=== PATIENT | female | born 1935 | race Caucasian/White ===

== ENCOUNTER 2018-01-07 11:40 | Inpatient (IN) ==
[2018-01-07] MEDS ORDERED: MORPHINE SULFATE 2 MG/1 ML IVP STA (15:50)
--- NOTE | 2018-01-07 15:58 | PDOC ---
HPI - History of Present Illness Date of Service: 01/07/18 Time of Service: 15:30 Chief Complaint: Left hip pain History of Present Illness: This is an 82 years old female with medical history significant for history of hypertension, dementia who apparently fell at home after she tripped and landed on her left hip. She was complaining from severe left hip pain was unable to stand or put weight on it she was able to contact the EMS who brought her to the ER in [place]. Evaluation revealed an acute displaced and rotated left subcapital hip fracture the ER physician there spoke with Dr. Camilo who accepted the patient and patient was transferred here. Patient when I saw was complaining from pain in the left hip area. She is denying other symptoms like chest pain or shortness of breath or pain elsewhere. No nausea. Past Medical History Medical History: 1. Hypertension. 2. Dementia Surgical History: 1. Hysterectomy. 2. Appendectomy. 3. Cholecystectomy. 4. Salpingo-oophorectomy Family History: Reviewed an Not Pertinent Past Social History: Used to smoke and drink but he said not anymore, no drugs. Lives by herself in [place]. She gets Meals on Wheels. She lives in an assisted living based on her description. Medication / Allergies Home Medications: Home Medications 3 Medication Instructions Recorded Confirmed Type Albuterol/Ipratropium Inhaler 1 - 2 puff INH DAILY PRN puff 07/26/14 07/10/17 History [Combivent Respimat Inhaler] Aspirin 1 tab PO DAILY tab 07/26/14 07/10/17 History Donepezil HCl [Aricept] 1 tab PO DAILY tab 07/26/14 07/10/17 History Hydrochlorothiazide 1 tab PO DAILY tab 07/26/14 07/10/17 History Oxybutynin Chloride 1 - 2 tab PO DAILY PRN tab 07/26/14 07/10/17 History Vitamin E (Dl,Tocopheryl Acet) 1,000 cap PO DAILY cap 07/26/14 07/10/17 History [Vitamin E] [place]-3/Dha/Epa/Fish Oil [Fish Oil] 2 tab PO BID cap 10/31/15 07/10/17 History Lisinopril 1 tab PO DAILY #30 tab 11/10/15 07/10/17 History Hydrocodone/Acetaminophen 1 tab PO Q4-6H #60 tab 06/07/16 07/10/17 History [Hydrocodon-Acetaminophen 5-325] Allergies/Adverse Reactions: Allergies 3 Allergy/AdvReac Type Severity Reaction Status Date / Time No Known Allergies Allergy Unverified 11/10/15 13:40 Review of Systems - Review of Systems All Systems: Reviewed & No Additional Complaints Except as Stated Exam - General General Appearance: Cooperative, Obese - Head Head Exam: Normal Inspection - Eye Eye Exam: POSITIVE: Normal Appearance - ENT ENT Exam: POSITIVE: Normal Exam - Neck Neck Exam: Normal Inspection - Respiratory Respiratory Exam: POSITIVE: Clear to Auscultation - Bilaterally - Cardiovascular Cardiovascular Exam: POSITIVE: RRR - GI/Abdominal GI/Abdominal Exam: POSITIVE: Normal Bowel Sounds, Non Tender, Non Distended, Soft, No Organomegaly - Rectal Rectal Exam: POSITIVE: Deferred - External Exam: POSITIVE: Deferred - Extremities Additional Extremities Exam Details: No edema. Shortened left leg. - Neurological Neurological Exam: POSITIVE: Alert, CN II-XII Intact, No Facial Droop, Speech Intact / Clear Additional Neurological Exam Details: She knew the day and the month. She struggled with part of the history. - Psychiatric Psychiatric Exam: POSITIVE: Flat Affect - Integumentary Integumentary Exam: POSITIVE: Normal Color Results - Labs Additional Lab Results: White count was 7.6, hemoglobin 12.7 platelet 334, glucose 109, BUN 22, creatinine 0.9, sodium 138 potassium 3.1, chloride 102, CO2 26, calcium 8.9, protein 7.1, albumin 3.6, bilirubin 0.4, AST 18, ALT 22, alkaline phosphatase 102 - EKG Data -: EKG Interpreted by Me Rate: Normal EKG Shows Normal: Sinus Rhythm - EKG Data EKG Interpretation: Other (EKG showed normal sinus rhythm) - Imaging Status: Image Reviewed by Me (The chest x-ray to me looked clear. The CT of the pelvis showed an acute displaced and rotated left subcapital hip fracture) Assessment and Plan - Patient Problems (1) Hip fracture, left Current Visit: Yes Status: Acute Comment: Patient will be put her nothing by mouth after midnight tonight. Plan for surgery 1 p.m. tomorrow based on my discussion with Dr. Camilo. Her EKG does not show evidence of ischemic changes. No history of ischemic heart disease, diabetes, renal failure, CVA, no history of heart failure. Based on the revised cardiac risk index risk factor then her estimated risk for cardiac , non-fatal NC and non-fatal cardiac arrest is probably about 0.4%. I think with the nature of the injury I think she can proceed with surgery with no need for further evaluation. I Did write for pain medications, will send a UA and culture if indicated. Code(s): S72.002A - Fracture of unspecified part of neck of left femur, initial encounter for closed fracture (2) Hypertension Current Visit: Yes Status: Acute Comment: She is on lisinopril and hydrochlorothiazide she said she took her medications today. I think will watch her blood pressure tonight and see whether we need to adjust her medications. We will likely hold her lisinopril and diuretics tomorrow though. Code(s): I10 - Essential (primary) hypertension (3) Hypokalemia Current Visit: Yes Status: Acute Comment: Replace her potassium. Repeat her labs in the morning Code(s): E87.6 - Hypokalemia (4) Dementia Current Visit: Yes Status: Acute Comment: Continue previous medications Code(s): F03.90 - Unspecified dementia without behavioral disturbance
[2018-01-07] MEDS ORDERED: Influenza 18-19 Vaccine (6mo+) 60 MCG/0.5 ML SYRINGE IM ONE (16:25)
[2018-01-07] MEDS ORDERED: DOCUSATE 100 MG CAPSULE PO PRN (16:39)
[2018-01-07] MEDS ORDERED: ONDANSETRON 4 MG/2 ML VIAL IVP PRN (16:39)
[2018-01-07] MEDS ORDERED: LIDOCAINE W/ SODIUM BICARB 0.5 ML SYR SUBD PRN (16:39)
[2018-01-07] MEDS ORDERED: ACETAMINOPHEN 325 MG TABLET PO PRN (16:39)
[2018-01-07] MEDS ORDERED: CALCIUM CARBONATE 500 MG (TUMS) CHEWABLE TABLET PO PRN (16:39)
[2018-01-07] MEDS ORDERED: HYDROcodone-APAP 5 MG -325 MG TABLET PO SCH (16:45)
[2018-01-07] MEDS: MORPHINE SULFATE 2 MG/1 ML IVP PRN (17:14)
[2018-01-07] MEDS: POTASSIUM CHLORIDE 20 MEQ TAB PO SCH ×2 (17:14→21:36)
--- NOTE | 2018-01-07 19:46 | CONSULT ---
Consult Note - Consult Consult Date: 01/07/18 Reason for Consult: PreOp Consulation : Ortho Requesting Physician: Dr. Bardales Primary Care Provider: MELITON ROONEY - History of Present Illness History of Present Illness: 82-year-old female who lives in senior housing was at home where she lives semi- independent with some assist who sustained a fall landing on her left side immediate pain and discomfort and deformity. Patient was brought to the emergency room and we'll and wishes found to have a hip fracture and requested transfer. Patient did not have any dizziness lightheadedness shortness of breath or chest pain. Patient's transfer delayed because no ambulance available. Patient denied hip pain prior and discussing with family there was no prior hip pain on the left Past Medical History Medical History: 1. Hypertension. 2. Dementia Surgical History: 1. Hysterectomy. 2. Appendectomy. 3. Cholecystectomy. 4. Salpingo-oophorectomy Family History: Reviewed an Not Pertinent Past Social History: Used to smoke and drink but he said not anymore, no drugs. Lives by herself in [place]. She gets Meals on Wheels. She lives in an assisted living based on her description. Tobacco Use: Former Smoker In the Past 12 Months, Have Used or Abuse Any of the Following Substance: None Medication / Allergies Home Medications: Home Medications 3 Medication Instructions Recorded Confirmed Type Albuterol/Ipratropium Inhaler 1 - 2 puff INH DAILY PRN puff 07/26/14 07/10/17 History [Combivent Respimat Inhaler] Aspirin 1 tab PO DAILY tab 07/26/14 07/10/17 History Donepezil HCl [Aricept] 1 tab PO DAILY tab 07/26/14 07/10/17 History Hydrochlorothiazide 1 tab PO DAILY tab 07/26/14 07/10/17 History Oxybutynin Chloride 1 - 2 tab PO DAILY PRN tab 07/26/14 07/10/17 History Vitamin E (Dl,Tocopheryl Acet) 1,000 cap PO DAILY cap 07/26/14 07/10/17 History [Vitamin E] [place]-3/Dha/Epa/Fish Oil [Fish Oil] 2 tab PO BID cap 10/31/15 07/10/17 History Lisinopril 1 tab PO DAILY #30 tab 11/10/15 07/10/17 History Hydrocodone/Acetaminophen 1 tab PO Q4-6H #60 tab 06/07/16 07/10/17 History [Hydrocodon-Acetaminophen 5-325] Allergies/Adverse Reactions: Allergies 3 Allergy/AdvReac Type Severity Reaction Status Date / Time No Known Allergies Allergy Unverified 11/10/15 13:40 Exam - - Exam: Examination shows that the patient is a well-developed well-nourished female in no apparent distress. She is alert and oriented generally though she does have some degree of confusion has trouble finding words she does know the date and day and she does realize that she broke her hip and where she currently is. She also remembered me haven't seen her previously for her knee. Examination shows that head and neck is generally benign upper extremities good active range of motion right hip with a good motion as well as knee ankle and toe motion. As far as the left lower extremity patient with shortening and external rotation no open wounds no significant bruising or ecchymosis but shortening of the leg. She has good sensory exam is generally motor and sensory exam is nonfocal. Radiographs were obtained in [place] which show a subcapital hip fracture with shortening and anterior angulation of the fracture site with almost complete displacement. Patient with reasonable joint space preservation no evidence of arthritic changes. A CT scan was obtained and [place] which showed similar findings I don't see any evidence of intertrochanteric hip fracture extension. Owing spaces reasonably well-preserved no evidence of arthritic type changes at the hip joint on the left but patient does have some evidence of hip arthritis on the right - Vitals Vital Signs: Vital Signs Temperature 98.9 F Temperature Source Oral Pulse Rate [Pulse Oximeter] 83 Respiratory Rate 16 Blood Pressure [Left Arm] 159/60 Pulse Ox 90 Oxygen Flow Rate 3 Oxygen Delivery Method Nasal Cannula Height 5 ft 3 in Weight 73.936 kg Assessment and Plan - Assessment / Plan Additional Assessment/Plan Details: Impression: Left subcapital hip fracture Plan: We discussed the patient's current condition and clinical findings as it pertains to the current situation. Surgical versus nonsurgical options risks and benefits were discussed and reviewed. Options moving forward include but are not limited to continued choice to live with their current condition; evaluate their current condition further with imaging studies and/or diagnostic testing, etc.; treat problem/problems with surgical versus nonsurgical methods. The patient demonstrates a clear understanding of our discussion. All questions were answered. Surgical versus nonsurgical options risks and benefits were discussed and reviewed. The risks include but are not limited to bleeding, infection, neurovascular damage, wound problems, deep vein thromboses, pulmonary embolism, fracture, dislocation, nonunion/malunion, need for further surgery, need for blood transfusion, and loss of life and limb. Certainly any surgical procedure may not improve symptoms and potentially could makes symptoms worse. There are no guarantees implied with the discussion of surgical treatment. All questions are answered and the patient wishes to proceed with surgical treatment. Discussed with family she had no prior hip pain we will proceed with hemiarthroplasty. All questions were answered.
[2018-01-07] MEDS: HYDROcodone-APAP 5 MG -325 MG TABLET PO PRN (21:36)
[2018-01-08] MEDS: HYDROcodone-APAP 5 MG -325 MG TABLET PO PRN ×2 (01:10→09:51)
[2018-01-08 05:37] LABS: BASOPHILS # (AUTO) 0.03 10*3/UL; BASOPHILS % (AUTO) 0.3 % (0-1); EOSINOPHILS # (AUTO) 0.14 10*3/UL; EOSINOPHILS % (AUTO) 1.2 % (0-8); Hematocrit [HCT] 40.5 % (37.0-47.0); Hemoglobin [HGB] 13.5 g/dL (12.0-16.0); LYMPHOCYTES # (AUTO) 0.81 10*3/uL; MEAN CORPUSCULAR HEMOGLOBIN 29.4 PG (27-31); MEAN CORPUSCULAR HGB CONC 33.3 g/dL (33-37); MEAN CORPUSCULAR VOLUME 88.2 FL (81-99); MEAN PLATELET VOLUME 10.9 FL (7.4-12.2); MONOCYTES # (AUTO) 0.87 10*3/UL (0.3-0.8); MONOCYTES % (AUTO) 7.3 % (5-15); NEUTROPHILS # (AUTO) 9.98 10*3/UL; NEUTROPHILS % (AUTO) 84.2 % (50-80); RED BLOOD COUNT 4.59 10^6/uL (4.20-5.40)
[2018-01-08 06:02] LABS: BLOOD UREA NITROGEN 15 mg/dL (7-22)
[2018-01-08 06:45] LABS: PLATELET MORPHOLOGY COMMENT NORMAL MORPHOLOGY (NORM); RBC MORPHOLOGY COMMENT NORMAL MORPHOLOGY (NORM); WBC MORPHOLOGY COMMENT NORMAL MORPHOLOGY (NORM)
[2018-01-08] MEDS ORDERED: Nasal Sanitizer POPSWAB ampule 3 AMP (Nozin) PREOP DOSE ENOS SCH (07:30)
[2018-01-08] MEDS ORDERED: Acetaminophen 1000mg Inj 1,000 MG/100 ML VIAL IV PRN (07:51)
--- NOTE | 2018-01-08 07:51 | PDOC(PROG) ---
Date of Service: 01/08/18 Time of Service: 08:00 Interval History: Subjective Patient complaining from pain in her back today. She still have pain in her hip. Denying other symptoms. Objective : Data - Labs CBC and BMP: 01/08/18 05:25 01/08/18 05:25 Objective : Exam - General General Appearance: No Acute Distress, Cooperative, Obese - Head Head Exam: Normal Inspection - Eye Eye Exam: Normal Appearance - ENT ENT Exam: Normal Exam - Neck Neck Exam: Normal Inspection - Respiratory Respiratory Exam: Clear to Auscultation - Bilaterally - Cardiovascular Cardiovascular Exam: RRR - GI/Abdominal GI/Abdominal Exam: Normal Bowel Sounds, Non Tender, Non Distended, Soft, No Organomegaly - Rectal Rectal Exam: Deferred - External Exam: Deferred - Extremities Additional Extremities Exam Details: No edema. Her left leg is in Jo's traction - Neurological Neurological Exam: Alert, CN II-XII Intact, No Facial Droop, Speech Intact / Clear - Psychiatric Psychiatric Exam: Flat Affect Assessment and Plan - Patient Problems (1) Hip fracture, left Current Visit: Yes Status: Acute Comment: She will have surgery today. I did order a UA yesterday however it was not sent, they will send it today. Code(s): S72.002A - Fracture of unspecified part of neck of left femur, initial encounter for closed fracture (2) Hypertension Current Visit: Yes Status: Acute Comment: I think will put her on Norvasc for blood pressure. Code(s): I10 - Essential (primary) hypertension (3) Hypokalemia Current Visit: Yes Status: Acute Comment: This is replaced Code(s): E87.6 - Hypokalemia (4) Dementia Current Visit: Yes Status: Acute Comment: Same med Code(s): F03.90 - Unspecified dementia without behavioral disturbance
--- NOTE | 2018-01-08 08:04 | ORTHO.PROG ---
Last Taken Vital Signs: Vital Signs - Last Taken Temperature 97.7 F 01/08/18 07:06 Pulse Rate 74 01/08/18 07:06 Respiratory Rate 20 01/08/18 07:06 Blood Pressure 173/73 01/08/18 07:06 Pulse Ox 93 01/08/18 07:06 Subjective: And also some lower left back pain. Left hip pain. Objective: Examination shows that the patient has good motion of the toes she states she has normal sensory exam there is no areas of skin breakdown around the hip region. Patient with tenderness to palpation over the hip region. Patient is in Jo's traction. Patient with no flank type pain. In no pain with palpation or percussion in the lower back. Laboratory Results 01/08/18 01/08/18 01/08/18 Range/Units 05:25 05:25 05:25 WBC 11.85 H (4.8-10.8) 10^3/uL RBC 4.59 (4.20-5.40) 10^6/uL Hgb 13.5 (12.0-16.0) g/dL Hct 40.5 (37.0-47.0) % MCV 88.2 (81-99) FL MCH 29.4 (27-31) PG MCHC 33.3 (33-37) g/dL RDW Std Deviation 47.3 (39-50) fL RDW Coeff of Xuan 14.9 H (11.5-14.5) % Plt Count 338 (140-350) 10*3/uL MPV 10.9 (7.4-12.2) FL Immature Gran % (Auto) 0.2 (0-5) % Neut % (Auto) 84.2 H (50-80) % Lymph % (Auto) 6.8 L (10-50) % [place] % (Auto) 7.3 (5-15) % Eos % (Auto) 1.2 (0-8) % Baso % (Auto) 0.3 (0-1) % Immature Gran # (Auto) 0.02 10*3/UL Neut # (Auto) 9.98 10*3/UL Lymph # (Auto) 0.81 10*3/uL [place] # (Auto) 0.87 H (0.3-0.8) 10*3/UL Eos # (Auto) 0.14 10*3/UL Baso # (Auto) 0.03 10*3/UL WBC Morphology Comment Normal morphology (NORM) Plt Morphology Comment Normal morphology (NORM) RBC Morph Comment Normal morphology (NORM) Sodium 138 (135-145) meq/L Potassium 3.6 L (3.8-5.2) meq/L Chloride 108 (98-112) meq/L Carbon Dioxide 22 L (23-33) meq/L Anion Gap 8 (5-20) BUN 15 (7-22) mg/dL Creatinine 0.5 (0.50-1.20) mg/dL BUN/Creatinine Ratio 30.00 H (6-20) Glucose 115 H (78-110) mg/dL Calculated Osmolality 287.0 (267-292) mOsm/kg Calcium 8.7 (8.7-10.7) mg/dL Blood Type AB NEGATIVE Antibody Screen Negative Vital Signs (24 hrs) Temp Pulse Pulse Resp BP Pulse Ox 01/08/18 07:06 97.7 F 74 20 173/73 93 01/08/18 04:58 97.2 F 100 20 157/84 94 01/08/18 04:19 92 01/07/18 20:54 97.7 F 105 H 20 169/92 92 01/07/18 19:00 80 01/07/18 17:21 90 01/07/18 15:46 98.9 F 83 16 159/60 92 Assessment: Left femoral neck subcapital fracture Plan: Tentative plan is to proceed with hemiarthroplasty on left we'll see about doing this later today once or time is available equipment is available. We will discuss the case further there are any questions with her daughter her sister. We did discuss the case with her sister Jose Raul yesterday down in [facility] with surgery. We discussed the patient's current condition and clinical findings as it pertains to the current situation. Surgical versus nonsurgical options risks and benefits were discussed and reviewed. Options moving forward include but are not limited to continued choice to live with their current condition; evaluate their current condition further with imaging studies and/or diagnostic testing, etc.; treat problem/problems with surgical versus nonsurgical methods. The patient demonstrates a clear understanding of our discussion. All questions were answered. Surgical versus nonsurgical options risks and benefits were discussed and reviewed. The risks include but are not limited to bleeding, infection, neurovascular damage, wound problems, deep vein thromboses, pulmonary embolism, fracture, dislocation, nonunion/malunion, need for further surgery, need for blood transfusion, and loss of life and limb. Certainly any surgical procedure may not improve symptoms and potentially could makes symptoms worse. There are no guarantees implied with the discussion of surgical treatment. All questions are answered and the patient wishes to proceed with surgical treatment.
[2018-01-08] MEDS: POTASSIUM CHLORIDE 20 MEQ TAB PO SCH (08:12)
[2018-01-08] MEDS: MORPHINE SULFATE 2 MG/1 ML IVP PRN (08:12)
--- NOTE | 2018-01-08 08:54 | DI ---
XR HIP COMPLETE MIN 2VW U/L,01/07/2018 5:02 PM: Clinical History: Left subcapital hip fracture. Previous Exam: None at this facility. Findings: AP and crosstable lateral views of the left hip are obtained, and demonstrate a displaced subcapital femoral neck fracture. Impression: Displaced left subcapital hip fracture.
[2018-01-08] MEDS ORDERED: DONEPEZIL HCL PO SCH (09:00)
[2018-01-08] MEDS ORDERED: AmLODIPine Tab 5 MG TABLET PO SCH (09:00)
[2018-01-08 09:52] LABS: BILIRUBIN,URINE NEGATIVE (NEG); CLARITY,URINE CLEAR (CLEAR); COLOR,URINE YELLOW (Y); GLUCOSE, URINE (UA) NEGATIVE (NEG); OCCULT BLOOD,URINE MODERATE (NEG); PROTEIN,URINE 30 mg/dl (NEG)
[2018-01-08 10:01] LABS: BACTERIA,URINE FEW; SQUAMOUS EPITHELIAL CELL,UR RARE; URINE SAMPLE TYPE CLEAN CATCH URINE; WBC,URINE 50-60
[2018-01-08] MEDS ORDERED: cefTRIAXone Inj 1 GM in Sodium Chloride 0.9% 100 ML IV SCH (11:00)
[2018-01-08] MEDS ORDERED: Lactated Ringers 1,000 ML PRIMARY IV ONE ×2 (12:30→15:28)
[2018-01-08] MEDS ORDERED: MIDAZOLAM 5 MG/1 ML ONE ×2 (12:34→13:39)
[2018-01-08] MEDS ORDERED: KETAMINE 100 MG/1 ML - 5 ML ONE (12:34)
[2018-01-08] MEDS ORDERED: fentaNYL Inj 100 MCG/2 ML VIAL ONE (12:34)
[2018-01-08] MEDS ORDERED: PROPOFOL 10 MG/1 ML (200 MG/20 ML) VIAL IV ONE ×2 (12:34→14:23)
[2018-01-08] MEDS ORDERED: EPINEPHrine Inj (1:1,000) 1 mg/ml amp ONE (12:35)
[2018-01-08] MEDS ORDERED: BUPIVACAINE SPINAL 7.5 MG/1 ML - 2 ML IV ONE (12:35)
[2018-01-08] MEDS ORDERED: Sodium Chloride 0.9% 500 ML ONE (12:37)
[2018-01-08] MEDS ORDERED: LIDOCAINE W/ SODIUM BICARB 0.5 ML SYR ONE ×2 (12:38→13:14)
[2018-01-08] MEDS ORDERED: BUPivacaine Inj 0.5% PF (5mg/ml) 30ml vial ONE (12:41)
[2018-01-08] MEDS ORDERED: BACITRACIN 50,000 UNIT VIAL IRRIG ONE (12:42)
[2018-01-08] MEDS ORDERED: Lactated Ringers 1,000 ML PRIMARY IV SCH (12:45)
[2018-01-08] MEDS ORDERED: Gentamicin Inj 40 MG/ML VIAL ONE (12:54)
[2018-01-08] MEDS ORDERED: Sodium Chloride 0.9% 2,000 ML PRIMARY IV ONE (13:00)
[2018-01-08] MEDS ORDERED: HEPARIN 10,000 UNIT/1 ML ONE (13:00)
[2018-01-08] MEDS ORDERED: ceFAZolin Inj 2gm (Premix) 2 GM/50 ML BAG IV ONE (13:29)
[2018-01-08] MEDS ORDERED: TRANEXAMIC ACID 1,000 MG / 10 ML VIAL ONE ×2 (13:39→15:19)
[2018-01-08] MEDS ORDERED: FAMOTIDINE 20 MG/2 ML VIAL IVP ONE (14:38)
[2018-01-08] MEDS ORDERED: SUCCINYLCHOLINE CHLORIDE 20 MG/1 ML - 10 ML ONE (14:39)
[2018-01-08] MEDS ORDERED: Ketorolac Inj 30 MG, Morphine Inj (Ortho Cocktail) 5 MG, BUPivacaine Inj 0.25% PF 150 MG SPLASH ONE ×6 (14:44→14:50)
[2018-01-08] MEDS ORDERED: Sodium Chloride 0.9% vial 40 ML ONE (14:47)
[2018-01-08] MEDS ORDERED: BUPivacaine Liposome/PF (Exparel) Inj 20ml vial INFIL ONE (14:47)
[2018-01-08] MEDS ORDERED: ePHEDrine Inj 50 MG/ML AMP ONE (16:12)
--- NOTE | 2018-01-08 16:23 | ORTHO.OP ---
- - -: See Dictated Operative Report Procedure Codes - Hip Procedures Primary Hip Procedure: Other CPT Code(s) (cpt 66368, Azra SWENSON assisted)
[2018-01-08] MEDS ORDERED: Sodium Chloride 0.9% 250 ML ONE (16:51)
--- NOTE | 2018-01-08 16:56 | CRNA.PROGR ---
Anesthesia Time - Procedure/Recovery Time Start Date: 01/08/18 Anesthesia : Time In: 13:41 Anesthesia : Time Out: 16:50 - Block Time PreOp Block : Time In: 12:50 PreOp Block : Time Out: 13:10 - Other Weight: 73.936 kg Height: 5 ft 3 in Body Mass Index (BMI): 28.8 Physical Status: P3 Anesthesia Type: Spinal Block, General Anesthesia : LMA
--- NOTE | 2018-01-08 16:56 | CRNA.PROGR ---
Anesthesia Recovery Phase I - Post Anesthesia Evaluation Patient's Condition on Arrival in Phase I: Stable Patient's Condition on Arrival in Phase II: Stable Pain Level: 0
--- NOTE | 2018-01-08 16:58 | CRNA.PROCE ---
Central Neuraxis Block Placenm - - Safety Measures: Time Out Taken, Site Verified - - Type of Block: Subarachnoid Reason for Block: Surgical Moniters Used During Block: EKG, SPO2, NIBP Sedation Used - Enter Amount Used in Comment Field: Midazolam (mg): Yes (2mg), Other Sedation: Yes (propofol) Skin Prep Used: ChloroPrep Draped: Yes Skin Infiltration - Enter Amount Used in Comment Field: 1% Xylocaine with Bicarb (mL): Yes (.5cc) Spinal Needle Used: 22 Kvng 80 mm Local Anesthetic - Enter Amount Used in Comment Field: 0.75 % Bupivacaine with Dextrose (ml): Yes Additive Used - Enter Amount Used in Comment Field: Epinephrine 1:1000 Needle Rinse (mL): Yes (.02cc) Bioclusive Dressing Applied: No Anesthesia Time - Block Time PreOp Block : Time In: 12:50 PreOp Block : Time Out: 13:10 - Other Weight: 73.936 kg Height: 5 ft 3 in Body Mass Index (BMI): 28.8
[2018-01-08] MEDS ORDERED: ONDANSETRON 4 MG/2 ML VIAL IVP PRN (18:15)
[2018-01-08] MEDS ORDERED: MORPHINE SULFATE 2 MG/1 ML IVP PRN (18:15)
[2018-01-08] MEDS ORDERED: Sodium Chloride 0.9% 1,000 ML PRIMARY IV SCH (18:15)
[2018-01-08] MEDS: Lactated Ringers 1,000 ML PRIMARY IV SCH (19:17)
[2018-01-08] MEDS: DOCUSATE 100 MG CAPSULE PO SCH (20:53)
[2018-01-08] MEDS ORDERED: FISH OIL PO SCH (21:00)
[2018-01-08] MEDS ORDERED: DHA PO SCH (21:00)
[2018-01-08] MEDS ORDERED: OMEGA PO SCH (21:00)
[2018-01-08] MEDS ORDERED: EPA PO SCH (21:00)
[2018-01-08] MEDS: HYDROcodone-APAP 7.5 MG-325 MG TABLET PO PRN (21:11)
[2018-01-08] MEDS: ceFAZolin Inj 2gm (Premix) 2 GM/50 ML BAG IV SCH (21:51)
[2018-01-09] MEDS: HYDROcodone-APAP 7.5 MG-325 MG TABLET PO PRN ×5 (04:27→20:52)
[2018-01-09] MEDS: ceFAZolin Inj 2gm (Premix) 2 GM/50 ML BAG IV SCH (05:12)
[2018-01-09 05:33] LABS: BASOPHILS # (AUTO) 0.04 10*3/UL; BASOPHILS % (AUTO) 0.3 % (0-1); EOSINOPHILS # (AUTO) 0.17 10*3/UL; EOSINOPHILS % (AUTO) 1.5 % (0-8); Hematocrit [HCT] 38.8 % (37.0-47.0); Hemoglobin [HGB] 12.4 g/dL (12.0-16.0); LYMPHOCYTES # (AUTO) 0.81 10*3/uL; MEAN CORPUSCULAR HEMOGLOBIN 28.4 PG (27-31); MEAN PLATELET VOLUME 11.3 FL (7.4-12.2); MONOCYTES # (AUTO) 1.05 10*3/UL (0.3-0.8); MONOCYTES % (AUTO) 9.1 % (5-15); NEUTROPHILS # (AUTO) 9.46 10*3/UL; NEUTROPHILS % (AUTO) 81.9 % (50-80); RED BLOOD COUNT 4.36 10^6/uL (4.20-5.40)
[2018-01-09 05:51] LABS: BLOOD UREA NITROGEN 15 mg/dL (7-22)
[2018-01-09 06:47] LABS: WBC MORPHOLOGY COMMENT SEE COMMENTS (NORM)
[2018-01-09] MEDS ORDERED: HYDROCHLOROTHIAZIDE 25 MG TABLET PO SCH ×2 (07:00→09:00)
--- NOTE | 2018-01-09 07:23 | DI ---
XR HIP COMPLETE MIN 2VW U/L,01/08/2018 4:12 PM: Clinical History: Status post left total of arthroplasty. Previous Exam: January 07, 2018 Findings: AP and crosstable lateral views of the left hip are obtained, and demonstrate anatomic alignment with out fractures. Patient is status post left total hip arthroplasty. Overlying skin leeanna are seen. Impression: Status post left total hip arthroplasty.
--- NOTE | 2018-01-09 07:54 | ORTHO.PROG ---
Last Taken Vital Signs: Vital Signs - Last Taken Temperature 98 F 01/09/18 07:36 Pulse Rate 73 01/09/18 07:36 Respiratory Rate 18 01/09/18 07:36 Blood Pressure 169/82 01/09/18 07:36 Pulse Ox 94 01/09/18 07:36 Subjective: Patient notes some mild back pain and also she feels both of her hips or soreness or painful today. Objective: Examination shows that the patient's dressings are clean and dry their place and functioning. Patient with the left leg in a 20 external rotation normal position patient sitting with the right leg slightly flexed and internally rotated. Motor and sensory exam seems to be good she has good motor about the foot toes and ankles and sensory exam. Laboratory Results 01/08/18 01/09/18 01/09/18 Range/Units 09:30 04:45 05:00 WBC 11.55 H (4.8-10.8) 10^3/uL RBC 4.36 (4.20-5.40) 10^6/uL Hgb 12.4 (12.0-16.0) g/dL Hct 38.8 (37.0-47.0) % MCV 89.0 (81-99) FL MCH 28.4 (27-31) PG MCHC 32.0 L (33-37) g/dL RDW Std Deviation 47.1 (39-50) fL RDW Coeff of Xuan 14.9 H (11.5-14.5) % Plt Count 308 (140-350) 10*3/uL MPV 11.3 (7.4-12.2) FL Immature Gran % (Auto) 0.2 (0-5) % Neut % (Auto) 81.9 H (50-80) % Lymph % (Auto) 7.0 L (10-50) % [place] % (Auto) 9.1 (5-15) % Eos % (Auto) 1.5 (0-8) % Baso % (Auto) 0.3 (0-1) % Immature Gran # (Auto) 0.02 10*3/UL Neut # (Auto) 9.46 10*3/UL Lymph # (Auto) 0.81 10*3/uL [place] # (Auto) 1.05 H (0.3-0.8) 10*3/UL Eos # (Auto) 0.17 10*3/UL Baso # (Auto) 0.04 10*3/UL WBC Morphology Comment See comments (NORM) Plt Morphology Comment Pending RBC Morph Comment Pending Sodium 139 (135-145) meq/L Potassium 3.9 (3.8-5.2) meq/L Chloride 103 (98-112) meq/L Carbon Dioxide 27 (23-33) meq/L Anion Gap 9 (5-20) BUN 15 (7-22) mg/dL Creatinine 0.6 (0.50-1.20) mg/dL BUN/Creatinine Ratio 25.00 H (6-20) Glucose 103 (78-110) mg/dL Calculated Osmolality 288.0 (267-292) mOsm/kg Calcium 8.7 (8.7-10.7) mg/dL Ur Collection Type Clean catch urine Urine Color Yellow (Y) Urine Clarity Clear (CLEAR) Urine pH 6.0 (5.0-8.5) Ur Specific [place] 1.025 (1.005-1.030) Urine Protein 30 A (NEG) mg/dl Urine Glucose (UA) Negative (NEG) mg/dL Urine Ketones 40 (NEG) Urine Occult Blood Moderate H (NEG) Urine Nitrate Positive A (NEG) Urine Bilirubin Negative (NEG) Urine Urobilinogen 1.0 (0.2) EU/dL Ur Leukocyte Esterase Moderate (NEG) Urine RBC 10-12 (NONE) /hpf Urine WBC 50-60 (NONE) Ur Squamous Epith Cells Rare (NONE) Ur Renal Epithelial Cell None (NONE) Urine Crystals None Urine Bacteria Few (NONE) Urine Casts None (NONE) Urine Mucus None (NONE) Urine Trichomonas None (NONE) Urine Yeast None (NONE) Ur Culture Indicated? Culture set Intake and Output - 8hrs 01/08/18 01/08/18 01/09/18 01/09/18 13:59 21:59 05:59 13:59 Intake: IV 3150 / 3150 834 / 834 Intake Oral Amount 100 / 100 200 / 200 OrthoPat 50 / 50 Output: Output, Drainage Amount 50 / 50 10 / 10 Output, Urinary Catheter Amount 300 / 300 300 / 300 Output, Urine Amount 200 / 200 Output, Estimated Blood Loss 500 / 500 Amount Other: Percent Meal Consumed Breakfast NPO Drains Hemovac Weight 73.936 kg 73.936 kg 73.936 kg Assessment: Left hemiarthroplasty overall doing well, some generalized pain not sure if this is from sitting still and lying still for long period time or may represent something else. Plan: Will mobilize with therapy today see how she does have her continue with mobilization pneumatic sequentials and aspirin. As far as blood levels look good today she'll also continue to be treated for UTI and IV antibiotics. However covered with oral and IV pain medications as needed.
[2018-01-09] MEDS: Lactated Ringers 1,000 ML PRIMARY IV SCH ×2 (08:07→19:11)
[2018-01-09 08:45] LABS: PLATELET MORPHOLOGY COMMENT NORMAL MORPHOLOGY (NORM); RBC MORPHOLOGY COMMENT NORMAL MORPHOLOGY (NORM)
[2018-01-09] MEDS ORDERED: LISINOPRIL 20 MG TABLET PO SCH (09:00)
[2018-01-09] MEDS ORDERED: cefTRIAXone Inj 1 GM in Lidocaine Inj 1% 2.1 ML IM SCH (09:00)
[2018-01-09] MEDS ORDERED: VITAMIN E PO SCH (09:00)
[2018-01-09] MEDS: ASPIRIN 325 MG EC TABLET PO SCH ×2 (09:09→20:51)
[2018-01-09] MEDS: AmLODIPine Tab 5 MG TABLET PO SCH (09:10)
[2018-01-09] MEDS: DOCUSATE 100 MG CAPSULE PO SCH ×2 (09:10→20:53)
[2018-01-09] MEDS: cefTRIAXone Inj 1 GM in Sodium Chloride 0.9% 100 ML IV SCH (09:24)
--- NOTE | 2018-01-09 11:59 | PTI REPORT ---
Thank you for the referral of Ebonie Andujar. She was seen on 01/09/18 for an inpatient evaluation status post left hip fracture and casi-arthroplasty. SUBJECTIVE: The patient is an 82-year-old female who was referred by Dr. Camilo secondary to a left hip fracture and a casi-arthroplasty. The patient was seen in her room with her daughter present. The patient's daughter states that the patient currently lives in [place] in senior housing and has had more difficulty over the last summer with her cognitive abilities. Her daughter lives in [place]. The patient has a history of a CVA about 10 years ago, which has left her with some right sided weakness and a right sided toe drop. Her daughter feels it is this toe drop that has led to her recent fall and hip fracture. PAST MEDICAL HISTORY: Past medical history can be found in the patient's medical record. OBJECTIVE FINDINGS: General observations: The patient was alert but not too oriented. She states that her back and both hips hurt her quite a bit. She was not sure which hip hurt her worse. She sometimes answers questions and sometimes does not, based on her abilities. Bed mobility: The patient was able to move from a supine to seated position. Transfers: We attempted to stand first thing this morning and she became very diaphoretic. Pain wasn't really the issue as much as the dizziness. She had not had breakfast yet. We transferred her back into bed and she felt a little better. ASSESSMENT: The patient is status post hip fracture with casi-arthroplasty. The patient is a good candidate for rehab. She probably will need extra rehab time due to her cognitive status. Her daughter was talking about possibly taking her to the jail in [place] for convalescence. Short-Term Goals: To be met by discharge from inpatient: Patient will be able to transfer from bed to stand independently. Patient will be able to ambulate 100 feet with walker, weight-bearing as tolerated. Patient will be able to ascend and descend 5 stairs with walker, weight-bearing as tolerated. Long-Term Goals: To be met following discharge from inpatient: Patient will attend outpatient physical therapy. TREATMENT PLAN: Patient will be seen B.I.D during the week and one time per day over the weekend as an inpatient for transfer training, sit to stand activities, and ambulation. INITIAL TREATMENT: We attempted to stand first thing this morning and she became very diaphoretic. Pain wasn't really the issue as much as the dizziness. She had not had breakfast yet. We transferred her back into bed and she felt a little better. We will attempt transfers again around 10:00 AM and get her up at least for lunch today. A walker was placed in her room. She has her own equipment at home. DANK
--- NOTE | 2018-01-09 13:42 | PDOC(PROG) ---
Interval History: Doing well has no complaints postop day 2 from hip surgery no chest pain nausea vomiting Objective : Data - Labs CBC and BMP: 01/09/18 04:45 01/09/18 05:00 Objective : Exam - General General Appearance: Cooperative - Respiratory Respiratory Exam: Clear to Auscultation - Bilaterally, Breathing Non Labored, Normal To Percussion, Normal to Percussion and Palpation - Cardiovascular Cardiovascular Exam: RRR, No Murmur, No Clicks, No Gallops, No Rubs, PMI Non- Displaced - GI/Abdominal GI/Abdominal Exam: Normal Bowel Sounds, Non Tender, Non Distended, Soft, No Masses, No Hepatomegaly, No Splenomegaly, No Organomegaly - Extremities Extremities Exam: No Clubbing Present, No Edema Present, No Cyanosis Present Assessment and Plan - Patient Problems (1) Hip fracture, left Current Visit: Yes Status: Acute Comment: Doing well continue PTOT as per Dr. Camilo's orders Code(s): S72.002A - Fracture of unspecified part of neck of left femur, initial encounter for closed fracture (2) Hypertension Current Visit: Yes Status: Acute Comment: Stable at present time Code(s): I10 - Essential (primary) hypertension (3) Hypokalemia Current Visit: Yes Status: Acute Comment: Replace Code(s): E87.6 - Hypokalemia (4) Dementia Current Visit: Yes Status: Acute Comment: Stable Code(s): F03.90 - Unspecified dementia without behavioral disturbance (5) UTI (urinary tract infection) Current Visit: Yes Status: Acute Comment: Continue antibiotics diagnosed on admission by Dr. Grissom Code(s): N39.0 - Urinary tract infection, site not specified
--- NOTE | 2018-01-09 16:12 | PT.PROG ---
Progress Note Progress Note: S. Patient stated that she is very sore and tired. Patient agreed to go sit in the chair. O. Patient transferred from supine to seated at the edge of bed and transferred to the chair where she was left with alarm and call light. A. Patient tolerated transfer poor, she required mod to max assist x 2 Patient would continue to benefit from skilled therapy to increase strength and endurance. P. continue POC.
--- NOTE | 2018-01-09 18:22 | DCSUMMARY ---
Hospitalization Summary Hospital Course: Final Discharge Diagnosis: Current Visit Problems Problem Status Onset Code Hip fracture, left Acute S72.002A Hypertension Acute I10 Hypokalemia Acute E87.6 Dementia Acute F03.90 UTI (urinary tract infection) Acute N39.0 Diagnostic Data, Laboratory Data, and Procedures of Signifigance: History and Physical pertinent to Admission: Past Medical History Medical History: 1. Hypertension. 2. Dementia Surgical History: 1. Hysterectomy. 2. Appendectomy. 3. Cholecystectomy. 4. Salpingo-oophorectomy Family History: Reviewed an Not Pertinent Past Social History: Used to smoke and drink but he said not anymore, no drugs. Lives by herself in [place]. She gets Meals on Wheels. She lives in an assisted living based on her description. Course of Hospitalization: This very nice 82-year-old female with past medical history significant for dementia and hypertension she fell at home and tripped and landed on her left hip went to the ER in [place] and the further workup revealed acute displaced and rotated left subcapital hip fracture. Dr. Camilo accepted the patient and repaired it she is doing quite well postop. She will be the finishing her PT and OT in the longterm in [place] where she was accepted and will be going in the morning. On the date of discharge, the patient was examined: Vitals reviewed and are listed below See my note from this morning per physical exam Vital Signs (24 hrs) Temp Pulse Resp BP Pulse Ox 01/09/18 17:00 97.4 F 77 18 144/69 91 01/09/18 12:18 98.2 F 73 18 152/68 91 01/09/18 07:36 98 F 73 18 169/82 94 01/09/18 07:00 73 01/09/18 05:14 153/79 01/09/18 04:49 85 20 185/90 92 01/09/18 04:23 94 01/09/18 01:00 71 20 150/70 95 01/08/18 20:19 98.4 F 65 20 149/70 94 01/08/18 18:30 97 F 56 L 18 127/56 100 Assessment and Plan: 1. As per discharge assessments above 2. Disposition: We'll in longterm 3. Condition on discharge, stable and improved. 4. Diet: regular diet 5. Activities: resume normal activities 6. Follow-Up: 1. [PCP] 2. Follow-up with Dr. Camilo as scheduled 7. Medications at the Time of Discharge: Home Medications 3 Medication Instructions Recorded Confirmed Type Albuterol/Ipratropium Inhaler 1 - 2 puff INH DAILY PRN puff 07/26/14 07/10/17 History [Combivent Respimat Inhaler] Aspirin 1 tab PO DAILY tab 07/26/14 07/10/17 History Donepezil HCl [Aricept] 1 tab PO DAILY tab 07/26/14 07/10/17 History Hydrochlorothiazide 1 tab PO DAILY tab 07/26/14 07/10/17 History Oxybutynin Chloride 1 - 2 tab PO DAILY PRN tab 07/26/14 07/10/17 History Vitamin E (Dl,Tocopheryl Acet) 1,000 cap PO DAILY cap 07/26/14 07/10/17 History [Vitamin E] [place]-3/Dha/Epa/Fish Oil [Fish Oil 2 tab PO BID cap 10/31/15 07/10/[address] 500 mg Softgel] Lisinopril 1 tab PO DAILY #30 tab 11/10/15 07/10/17 History Hydrocodone/Acetaminophen 1 tab PO Q4-6H #60 tab 06/07/16 07/10/17 History [Hydrocodone-Acetamin 5-325 mg] 8. Time, care, counseling and coordination of care for this discharge is greater than 30 minutes. Exam - Vitals Vital Signs: Vital Signs Temperature 97.4 F Temperature Source Temporal Artery Scan Pulse Rate [Apical] 80 Pulse Rate [Pulse Oximeter] 77 Pulse Rate 53 Respiratory Rate 18 Blood Pressure [Left Arm] 144/69 Blood Pressure 159/67 Pulse Ox 91 Oxygen Flow Rate 2 Oxygen Delivery Method Nasal Cannula Height 5 ft 3 in Weight 174 lb 8 oz Patient Problems - Patient Problem List (1) Hip fracture, left Current Visit: Yes Status: Acute Code(s): S72.002A - Fracture of unspecified part of neck of left femur, initial encounter for closed fracture Category: Medical (2) Hypertension Current Visit: Yes Status: Acute Code(s): I10 - Essential (primary) hypertension Category: Medical (3) Hypokalemia Current Visit: Yes Status: Acute Code(s): E87.6 - Hypokalemia Category: Medical (4) Dementia Current Visit: Yes Status: Acute Code(s): F03.90 - Unspecified dementia without behavioral disturbance Category: Medical (5) UTI (urinary tract infection) Current Visit: Yes Status: Acute Code(s): N39.0 - Urinary tract infection, site not specified Category: Medical
[2018-01-09] MEDS ORDERED: DONEPEZIL 5 MG TABLET PO SCH (21:00)
[2018-01-10] MEDS: HYDROcodone-APAP 7.5 MG-325 MG TABLET PO PRN ×2 (04:42→09:16)
[2018-01-10 04:54] VITALS: O2SAT 91
[2018-01-10] MEDS: Lactated Ringers 1,000 ML PRIMARY IV SCH (05:32)
[2018-01-10] MEDS ORDERED: Lactated Ringers 1,000 ML PRIMARY IV ONE (05:45)
[2018-01-10 05:52] LABS: BLOOD UREA NITROGEN 21 mg/dL (7-22)
[2018-01-10] MEDS: AmLODIPine Tab 5 MG TABLET PO SCH (09:16)
[2018-01-10] MEDS: ASPIRIN 325 MG EC TABLET PO SCH (09:16)
[2018-01-10] MEDS: DOCUSATE 100 MG CAPSULE PO SCH (09:17)
--- NOTE | 2018-01-10 09:19 | ORTHO.PROG ---
Last Taken Vital Signs: Vital Signs - Last Taken Temperature 97.8 F 01/10/18 04:20 Pulse Rate 67 01/10/18 04:20 Respiratory Rate 18 01/10/18 04:20 Blood Pressure 132/57 01/10/18 04:20 Pulse Ox 91 01/10/18 04:35 Subjective: Patient notes she's doing well this morning would like to sit in a chair Objective: Her dressing is in place clean and dry the negative pressure dressing is with good suction working well her motor and sensory exam lower extremity is good she denies any calf, popliteal, adductor hiatus or thigh pain. She has good foot and ankle and knee motion. No significant swelling or edema. Laboratory Results 01/10/18 Range/Units 04:35 Sodium 138 (135-145) meq/L Potassium 3.5 L (3.8-5.2) meq/L Chloride 108 (98-112) meq/L Carbon Dioxide 26 (23-33) meq/L Anion Gap 4 L (5-20) BUN 21 (7-22) mg/dL Creatinine 0.5 (0.50-1.20) mg/dL BUN/Creatinine Ratio 42.00 H (6-20) Glucose 101 (78-110) mg/dL Calculated Osmolality 288.0 (267-292) mOsm/kg Calcium 8.5 L (8.7-10.7) mg/dL Await CBC Vital Signs (24 hrs) Temp Pulse Resp BP Pulse Ox 01/10/18 04:35 91 01/10/18 04:20 97.8 F 67 18 132/57 92 01/10/18 00:03 97.9 F 64 20 132/57 91 01/09/18 19:46 97.2 F 61 18 130/64 93 01/09/18 18:43 53 L 01/09/18 17:00 97.4 F 77 18 144/69 91 01/09/18 12:18 98.2 F 73 18 152/68 91 Laboratory Results 01/10/18 Range/Units 04:35 Sodium 138 (135-145) meq/L Potassium 3.5 L (3.8-5.2) meq/L Chloride 108 (98-112) meq/L Carbon Dioxide 26 (23-33) meq/L Anion Gap 4 L (5-20) BUN 21 (7-22) mg/dL Creatinine 0.5 (0.50-1.20) mg/dL BUN/Creatinine Ratio 42.00 H (6-20) Glucose 101 (78-110) mg/dL Calculated Osmolality 288.0 (267-292) mOsm/kg Calcium 8.5 L (8.7-10.7) mg/dL Assessment: Left hemiarthroplasty Early dementia Plan: Patient will continue with protection using the negative suction Provine a dressing until 7 days out then will be covered with a [place] dressing. Patient will need follow-up with Dr. Camilo in [place] in approximately 3 weeks. Patient can have leeanna removed in approximately 10 days, Steri-Strips should be placed at that time. Continue with deep vein thromboses prophylaxis with the portable nomadic sequentials and aspirin 325 mg twice a day
[2018-01-10 09:21] LABS: BASOPHILS # (AUTO) 0.04 10*3/UL; BASOPHILS % (AUTO) 0.4 % (0-1); EOSINOPHILS % (AUTO) 3.2 % (0-8); Hematocrit [HCT] 35.2 % (37.0-47.0); LYMPHOCYTES # (AUTO) 0.93 10*3/uL; MEAN CORPUSCULAR HEMOGLOBIN 28.1 PG (27-31); MEAN CORPUSCULAR HGB CONC 31.3 g/dL (33-37); MEAN PLATELET VOLUME 11.4 FL (7.4-12.2); MONOCYTES # (AUTO) 0.78 10*3/UL (0.3-0.8); MONOCYTES % (AUTO) 8.3 % (5-15); NEUTROPHILS # (AUTO) 7.37 10*3/UL; RED BLOOD COUNT 3.91 10^6/uL (4.20-5.40)
[2018-01-10] MEDS: cefTRIAXone Inj 1 GM in Sodium Chloride 0.9% 100 ML IV SCH (09:23)
[2018-01-10] MEDS ORDERED: Influenza 18-19 Vaccine (6mo+) 60 MCG/0.5 ML SYRINGE IM ONE (09:30)
[2018-01-10 09:42] VITALS: BP 122/60; RESP 20; TEMP 97.4
[2018-01-10 09:48] LABS: PLATELET MORPHOLOGY COMMENT NORMAL MORPHOLOGY (NORM); RBC MORPHOLOGY COMMENT SEE COMMENTS (NORM); WBC MORPHOLOGY COMMENT NORMAL MORPHOLOGY (NORM)
--- NOTE | 2018-01-10 11:47 | OTI REPORT ---
Thank you for the referral of Ebonie Andujar. She was seen on 01/09/18 for an occupational therapy inpatient evaluation status post left hip fracture. SUBJECTIVE: The patient is an 82-year-old female. The patient reports she is feeling okay this afternoon. The patient's daughter was also present during the time of the evaluation. The patient reports that she lives in [place], [place]. At prior level of function, the patient lived alone in an apartment. She has had a history of falls. Over the last three months or so during the summer, the patient has not walked outside due to fear of falling. She states prior to admission she was able to complete her own activities of daily living including lower extremity dressing when sitting on a lower surface. She was able to move around the home. The patient sustained a fall in which she broke her left hip and then had surgery. The patient's daughter reports that the plan is for the patient to return to [place] tomorrow, but she will not be returning home, she will be returning to the [facility] where she can rehab to home. PAST MEDICAL HISTORY: Past medical history can be found in the patient's medical record. OBJECTIVE FINDINGS: General observations: The patient was supine in bed upon the therapist's arrival. She was not oriented to person or place. She was oriented to reason for hospitalization. Bed mobility: The patient was assisted to sitting edge of bed with max assist x2. Transfers: The patient performed a sit to stand transfer with max assist x2. She was only able to tolerate standing on the first attempt x10 seconds before her legs gave out and she had to sit down on the edge of the bed. The patient then performed a stand pivot transfer to recliner chair with max assist x2 and max verbal cueing. The patient is supposed to be partial weight-bearing; however, she was unable to follow precautions with verbal and tactile cues. Cognition: The patient struggled with following one step verbal commands today. Activities of daily living: The patient was dependent with donning socks. At this time the patient will probably not benefit from the use of adaptive equipment due to cognitive function. ASSESSMENT: Rehab potential is fair due to the patient's age, cognitive function, and diagnosis. The patient may benefit from skilled occupational therapy until discharge to the [facility]. Occupational Therapy Goals: To be met by discharge from inpatient: Patient will be able to complete bed mobility tasks with mod assist x2. Patient will be able to complete functional transfers with mod assist x2. Patient will be able to complete lower extremity dressing with max assist. TREATMENT PLAN: Patient will be seen B.I.D during the week and one time per day over the weekend as an inpatient to address the above goals and objectives. INITIAL TREATMENT: Treatment today consisted of the initial evaluation activities only. Following treatment session, the patient was returned to bed with call light in place and made comfortable. Nursing was notified that the patient was in pain following the last transfer back to bed. DANK
== END 2018-01-10 09:38 | DRG 470 ==
LOC: MED/SURG 15:34 → OPS 01-08 12:41 → MED/SURG 01-08 16:13
PROVIDERS: ADMIT Internal Medicine; ATTEND Internal Medicine